=== PATIENT | female | born 1940 | race African-American/Black ===

== ENCOUNTER 2020-01-14 04:41 | Emergency (ER) | payer OTHER ==
[~2020-01-14] VITALS: Ht 160 cm; Wt 58.0 kg
[2020-01-14] MEDS ORDERED: ACETAMINOPHEN 500MG TABLET PO ONE ×2 (05:15→06:45)
[2020-01-14 06:13] LABS: BASOPHILS % 0.8 % (0.0-2.0); EOSINOPHILS % 4.7 % (0.0-5.0); HEMATOCRIT. 38.9 % (36.0-48.0); HEMOGLOBIN. 12.8 g/dL (12.0-16.0); LYMPHOCYTES % 28.4 % (20.0-50.0); MEAN CORPUSCULAR HEMOGLOBIN 27.3 pg (28.0-32.0); MEAN CORPUSCULAR VOLUME 82.9 fL (81.0-99.0); MEAN PLATELET VOLUME 6.8 fl (7.4-10.4); MONOCYTES % 7.8 % (2.0-8.0); NEUTROPHILS % 58.3 % (40.0-76.0); PLATELET 251 x1000/uL (130-400); RED CELL DISTRIBUTION WIDTH 15.7 % (11.6-14.6)
[2020-01-14 06:22] LABS: INR 0.9
[2020-01-14 06:27] LABS: CHLORIDE 105 mEq/L (98-107)
[2020-01-14 09:34] LABS: CLARITY URINE CLEAR (CLEAR); COLOR URINE YELLOW (YELLOW); KETONES URINE NEGATIVE (NEGATIVE); LEUKOCYTE ESTERASE URINE TRACE (NEGATIVE); NITRITE URINE NEGATIVE (NEGATIVE); OCCULT BLOOD URINE NEGATIVE (NEGATIVE); PH URINE 6.5 (4.5-8.0); PROTEIN URINE NEGATIVE (NEGATIVE); SPECIFIC GRAVITY URINE 1.021 (1.005-1.030)
[2020-01-14 09:58] VITALS: BP 169/55
== END 2020-01-14 10:50 | disposition left against medical advice (07) ==
LOC: ER 04:41
DX: R51 Headache (principal); I10 Essential (primary) hypertension
CPT/HCPCS: 36415; 71045; 80053; 81003; 84484; 85025; 99285